=== PATIENT | female | born 1980 | race American Indian/Alaskan Native ===

== ENCOUNTER 2017-10-09 12:19 | Emergency (ER) | payer OTHER ==
[2017-10-09 12:42] VITALS: BP 116/69
[2017-10-09 13:28] LABS: HCG Qualitative,Urine Negative (Negative)
[2017-10-09 13:31] LABS: Bacteria,Urine 2+ /HPF (Negative); Bilirubin,Urine NEG (Negative); Blood,Urine NEG (Negative); Color,Urine Straw (Yellow); Mucus,Urine FEW /HPF; Protein,Urine <15 mg/dL mg/dL (Negative); Urobilinogen,Urine < 2.0 mg/dL (<2.0)
== END 2017-10-09 19:41 | disposition left against medical advice (07) ==
LOC: ED 12:19
DX: Z53.21 Procedure and treatment not carried out due to patient leaving prior to being seen by health care provider (principal)
CPT/HCPCS: 81001; 81025

== ENCOUNTER 2017-12-22 04:14 | Emergency (ER) | payer OTHER | END 2017-12-22 06:17 | disposition left against medical advice (07) | LOC: ED 04:14 | DX: G47.9 Sleep disorder, unspecified (principal); Z53.21 Procedure and treatment not carried out due to patient leaving prior to being seen by health care provider ==

== ENCOUNTER 2018-12-15 19:42 | Inpatient (IN) | payer OTHER ==
--- NOTE | 2018-12-15 20:07 | Event Note ---
ED Screening Note Date of service: 12/15/18 Time: 20:05 ED Screening Note: 38 y o female presents to ED cc of chest pain x 1 week worsening today This initial assessment/diagnostic orders/clinical plan/treatment(s) is/are subject to change based on patients health status, clinical progression and re- assessment by fellow clinical providers in the ED. Further treatment and workup at subsequent clinical providers discretion. Patient/guardian urged not to elope from the ED as their condition may be serious if not clinically assessed and managed. Initial orders include: chest pain protocol
[2018-12-15 20:43] LABS: BUN/Creatinine Ratio 8; Blood Urea Nitrogen 4 mg/dL (7-17); Hemolysis Index 0
[2018-12-15] MEDS ORDERED: ASPIRIN PO ONE (20:44)
--- NOTE | 2018-12-15 20:44 | Emergency Department Report ---
HPI - General Chief Complaint: Chest Pain Time Seen by Provider: 12/15/18 20:05 - HPI HPI: Room 24 The patient is a 38-year-old female presenting with a chief complaint of chest pain. The patient states for 1.5 months she's had intermittent substernal chest pain described as sharp in nature and associated with shortness of breath. Patient denies nausea/vomiting or diaphoresis. Patient states at times she gets lightheaded and her legs feel weak during the episode. Patient denies palpitations. Patient denies any recent flights or long car trips. Patient states she's never had a stress test or cardiac catheterization Location: [See above] Duration: [See above] Quality: [See above] Severity: [See above] Modifying factors: [see above] Context: [see above] Mode of transportation: [not driving] ED Past Medical Hx - Past Medical History Previous Medical History?: No Additional medical history: Beta-Thalassemia. Depression - Surgical History Past Surgical History?: No - Family History Family history: no significant - Social History Smoking Status: Current Some Day Smoker (cigars and hookah) Substance Use Type: None (denies illicit drug use), Alcohol (occasional) ED Review of Systems ROS: Stated complaint: CHEST PAIN Other details as noted in HPI Constitutional: denies: diaphoresis Eyes: denies: eye pain ENT: denies: throat pain Respiratory: shortness of breath Cardiovascular: chest pain. denies: palpitations Endocrine: no symptoms reported Gastrointestinal: denies: nausea, vomiting Genitourinary: denies: dysuria Musculoskeletal: denies: back pain Neurological: denies: headache Physical Exam - Physical Exam Vital Signs: Vital Signs 12/15/18 12/15/18 12/15/18 16:26 16:30 19:52 Temperature 98.5 F Pulse Rate 71 Respiratory 18 Rate Blood Pressure 103/51 O2 Sat by Pulse 94 94 100 Oximetry 12/15/18 12/15/18 12/15/18 20:04 20:25 20:30 Temperature 98.5 F Pulse Rate 71 72 Respiratory 18 18 Rate Blood Pressure 103/51 O2 Sat by Pulse 100 76 L Oximetry 12/15/18 20:31 Temperature Pulse Rate Respiratory Rate Blood Pressure O2 Sat by Pulse 99 Oximetry Physical Exam: GENERAL: The patient is well-developed well-nourished female lying on stretcher not appearing to be in acute distress. [] HEENT: Normocephalic. Atraumatic. Extraocular motions are intact. Patient has moist mucous membranes. NECK: Supple. Trachea midline CHEST/LUNGS: Clear to auscultation. There is no respiratory distress noted. HEART/CARDIOVASCULAR: Regular. There is no tachycardia. There is no gallop rub or murmur. ABDOMEN: Abdomen is soft, nontender. Patient has normal bowel sounds. There is no abdominal distention. SKIN: There is no rash. There is no edema. There is no diaphoresis. NEURO: The patient is awake, alert, and oriented. The patient is cooperative. The patient has normal speech MUSCULOSKELETAL: There is no evidence of acute injury. ED Course Vital Signs 12/15/18 12/15/18 12/15/18 16:26 16:30 19:52 Temperature 98.5 F Pulse Rate 71 Respiratory 18 Rate Blood Pressure 103/51 O2 Sat by Pulse 94 94 100 Oximetry 12/15/18 12/15/18 12/15/18 20:04 20:25 20:30 Temperature 98.5 F Pulse Rate 71 72 Respiratory 18 18 Rate Blood Pressure 103/51 O2 Sat by Pulse 100 76 L Oximetry 12/15/18 20:31 Temperature Pulse Rate Respiratory Rate Blood Pressure O2 Sat by Pulse 99 Oximetry ED Medical Decision Making - Lab Data Result diagrams: 12/15/18 20:14 12/15/18 20:14 Laboratory Tests 12/15/18 12/15/18 12/15/18 20:14 20:14 20:45 WBC 9.0 RBC 5.12 H Hgb 6.4 L Hct 24.6 L MCV < 50 L MCH 13 L MCHC 26 L RDW 28.4 H Plt Count 646 H Add Manual Diff Complete Total Counted 100 Seg Neuts % (Manual) 63.0 Band Neutrophils % 0 Lymphocytes % (Manual) 31.0 Reactive Lymphs % (Man) 0 Monocytes % (Manual) 6.0 Eosinophils % (Manual) 0 Basophils % (Manual) 0 Metamyelocytes % 0 Myelocytes % 0 Promyelocytes % 0 Blast Cells % 0 Nucleated RBC % Not Reportable Seg Neutrophils # Man 5.7 Band Neutrophils # 0.0 Lymphocytes # (Manual) 2.8 Abs React Lymphs (Man) 0.0 Monocytes # (Manual) 0.5 Eosinophils # (Manual) 0.0 Basophils # (Manual) 0.0 Metamyelocytes # 0.0 Myelocytes # 0.0 Promyelocytes # 0.0 Blast Cells # 0.0 WBC Morphology Not Reportable Hypersegmented Neuts Not Reportable Hyposegmented Neuts Not Reportable Hypogranular Neuts Not Reportable Smudge Cells Not Reportable Toxic Granulation Not Reportable Toxic Vacuolation Not Reportable Dohle Bodies Not Reportable Pelger-Huet Anomaly Not Reportable Jesus Rods Not Reportable Platelet Estimate Appears increased Clumped Platelets Not Reportable Plt Clumps, EDTA Not Reportable Large Platelets 1+ Giant Platelets Not Reportable Platelet Satelliting Not Reportable Plt Morphology Comment Not Reportable RBC Morphology Not Reportable Dimorphic RBCs Yes Polychromasia Not Reportable Hypochromasia 3+ Poikilocytosis Not Reportable Anisocytosis Not Reportable Microcytosis 3+ Macrocytosis Not Reportable Spherocytes Not Reportable Pappenheimer Bodies Not Reportable Sickle Cells Not Reportable Target Cells Few Tear Drop Cells 1+ Ovalocytes 1+ Helmet Cells Not Reportable [place] Bodies Not Reportable [place] Rings Not Reportable Sarah Cells 1+ Bite Cells Not Reportable Crenated Cell Not Reportable Elliptocytes Not Reportable Acanthocytes (Spur) 1+ Rouleaux Not Reportable Hemoglobin C Crystals Not Reportable Schistocytes Few Malaria parasites Not Reportable Murphy Bodies Not Reportable Hem Pathologist Commnt No D-Dimer 226.84 Sodium 137 Potassium 3.2 L Chloride 100.2 Carbon Dioxide 24 Anion Gap 16 BUN 4 L Creatinine 0.5 L Estimated GFR > 60 BUN/Creatinine Ratio 8 Glucose 91 Calcium 9.0 Troponin T < 0.010 - EKG Data -: EKG Interpreted by Me EKG shows normal: sinus rhythm Rate: normal - EKG Data When compared to previous EKG there are: previous EKG unavailable Interpretation: nonspecific ST-T wave adria (T-wave inversion in lead 3) - Radiology Data Radiology results: report reviewed (CXR), image reviewed (chest x-ray) interpreted by me: Chest x-ray-no focal infiltrates, no pneumothorax [facility] [address] [place] [address] XRay Report Signed Patient: GEMA CLARK MR#: [id number] : 1980 Acct:[id number] Age/Sex: 38 / F ADM Date: 12/15/18 Loc: ED Attending Dr: Ordering Physician: TORIE BARRON Date of Service: 12/15/18 Procedure(s): XR chest routine 2V Accession Number(s): [id number] cc: TORIE BARRON Fluoro Time In Minutes: CHEST 2 VIEWS INDICATION: Chest Pain. Generalized chest pain for the past 2 months COMPARISON: None FINDINGS: Support devices: None. Heart: Within normal limits. Lungs/pleura: No acute air space or interstitial disease. No pneumothorax. Additional findings: None. IMPRESSION: 1. No acute findings. Signer Name: Abel Sylvester MD Signed: 12/15/2018 8:51 PM Workstation Name: [id number] Transcribed By: YANIQUE Dictated By: Abel Sylvester MD Electronically Authenticated By: Abel Sylvester MD Signed Date/Time: 12/15/182050 DD/ 50 TD/TT: - Differential Diagnosis ACS, pericarditis, GERD, PE Critical care attestation.: If time is entered above; I have spent that time in minutes in the direct care of this critically ill patient, excluding procedure time. ED Disposition Clinical Impression: Chest pain Disposition: - OP ADMIT IP TO THIS HOSP Is pt being admited?: Yes Does the pt Need Aspirin: Yes Condition: Fair Instructions: Chest Pain (ED) Referrals: PRIMARY CARE, [Primary Care Provider] - 3-5 Days Time of Disposition: 22:48 (hospitalist paged (Dr Edouard))
--- NOTE | 2018-12-15 20:55 | XRay Report ---
CHEST 2 VIEWS INDICATION: Chest Pain. Generalized chest pain for the past 2 months COMPARISON: None FINDINGS: Support devices: None. Heart: Within normal limits. Lungs/pleura: No acute air space or interstitial disease. No pneumothorax. Additional findings: None. IMPRESSION: 1. No acute findings. Signer Name: Abel Sylvester MD Signed: 12/15/2018 8:51 PM Workstation Name: [id number]
[2018-12-15 21:07] LABS: Platelet Count 646 K/mm3 (140-440); Red Blood Count 5.12 M/mm3 (3.65-5.03)
[2018-12-15] MEDS ORDERED: K-DUR PO ONE (21:17)
[2018-12-15 21:54] LABS: Hematocrit 24.6 % (30.3-42.9); Hemoglobin 6.4 gm/dl (10.1-14.3); Mean Corpuscular HGB Conc 26 % (30-34); Mean Corpuscular Volume < 50 fl (79-97)
[2018-12-15 21:55] LABS: Red Cell Distribution Width 28.4 % (13.2-15.2)
[2018-12-15 22:36] LABS: Basophils % (Manual) 0 % (0.0-1.8); Eosinophils % (Manual) 0 % (0.0-4.3); Total Cells Counted 100
[2018-12-15 22:37] LABS: Burr Cells 1+; Hypochromasia 3+; Target Cells Few; Tear Drop Cells 1+
[2018-12-15 22:38] LABS: Dimorphic RBC Yes; Large Platelets 1+; Ovalocytes 1+; Schistocytes Few
[2018-12-15 22:39] LABS: Platelet Estimate Appears Increased
[2018-12-15] MEDS ORDERED: NITROSTAT SL PRN (23:40)
[2018-12-15] MEDS ORDERED: MORPHINE IV PRN (23:40)
[2018-12-15] MEDS ORDERED: TYLENOL PO PRN (23:41)
[2018-12-15] MEDS ORDERED: ZOFRAN IV PRN (23:41)
[2018-12-15] MEDS ORDERED: NACL 0.9% 500 ML 500 ML IV ONE (23:42)
[2018-12-16 01:19] LABS: Creatine Kinase MB < 1.0 ng/mL (0.0-4.0)
--- NOTE | 2018-12-16 04:39 | History and Physical Report ---
CHIEF COMPLAINT: Chest pain. HISTORY OF PRESENTING ILLNESS: The patient is a 38-year-old female who says she has been having intermittent chest pain going on for about 1 month. The patient described pain as sharp and located in the retrosternal area. There is history of associated shortness of breath and dizziness. The patient denied history of palpitations. Denies history of nausea and vomiting and denied history of diaphoresis. PAST MEDICAL HISTORY: Pertinent for beta thalassemia and depression. FAMILY HISTORY: Pertinent for thalassemia in the mother and no history of coronary artery disease in the parents or siblings. SOCIAL HISTORY: The patient smokes cigarettes, drinks alcohol, but does not use illicit drug. MEDICATIONS: The patient's home medications are not known at this time. ALLERGIES: There are no known drug allergies. REVIEW OF SYSTEMS: CONSTITUTIONAL: There is no fever, no chills, no diaphoresis. HEENT: There is no headache or sore throat. CARDIOVASCULAR SYSTEM: Chest pain is present. No orthopnea. RESPIRATORY SYSTEM: Shortness of breath is present. No cough. GASTROINTESTINAL SYSTEM: There is no nausea, no vomiting, no abdominal pain, diarrhea or constipation. NEUROLOGICAL SYSTEM: There is no numbness, but there is dizziness and no altered mental status. MUSCULOSKELETAL: There is no joint pain or swelling. DERMATOLOGICAL SYSTEM: There is no skin rash or itching. GENITOURINARY SYSTEM: There is no dysuria, hematuria, or flank pain. Rest of system review is normal. PHYSICAL EXAMINATION: GENERAL: At the time of exam, the patient was found to be alert, oriented x 3 and not in acute distress. VITAL SIGNS: Shows temperature of 98.5 degrees Fahrenheit, pulse of 71, respirations 18, blood pressure 103/51, O2 sat of 100% on room air. HEENT: Showed pupils to be equal, round, reactive to light and accommodation. Extraocular muscles are intact. NECK: Supple with no JVD or carotid bruit. CARDIOVASCULAR SYSTEM: Showed normal first and second heart sounds, with no gallops or murmurs. RESPIRATORY SYSTEM: Showed good air entry on both sides of the lungs, with no abnormal breath sounds. GASTROINTESTINAL SYSTEM: Showed abdomen to be full, soft, nontender, with no organomegaly or rigidity. NEUROLOGICAL: Shows no focal deficit. MUSCULOSKELETAL SYSTEM: Showed no joint swelling or tenderness. DERMATOLOGICAL SYSTEM: Showed no skin rash. GENITOURINARY SYSTEM: Showing no costovertebral angle tenderness. PERTINENT LABORATORY DATA AND IMAGING STUDIES: The patient had chest x-ray done that shows no acute findings. The patient's lab result shows CBC with normal white count, low hemoglobin of 6.4 and low hematocrit of 24.6 with low MCV of less than 50 and elevated platelet count of 646. The patient's chemistry shows a low potassium level of 3.2 with the rest of chemistry being unremarkable. The patient's troponin level was normal. IMAGING STUDIES: The patient had chest x-ray done that shows no acute cardiopulmonary lesion. DIAGNOSES: 1. Chest pain. 2. Anemia. 3. Hypokalemia. PLAN OF CARE: 1. The patient will be admitted to telemetry. 2. The patient will remain n.p.o. for Lexiscan stress test in the morning. 3. The patient will have serial cardiac enzymes involving troponin, total CK, and CK-MB checked every 6 hours x 2 more levels. 4. The patient will have transfusion of 2 units of packed red blood cells because of anemia; however, the patient will have a Hematology consult with Dr. Austen Odonnell because of history of beta thalassemia and anemia. 5. The patient will be on Tylenol 650 mg by mouth every 4 hours for fever and headache. 6. The patient will be on aspirin 325 mg by mouth daily and will be on nitro paste 0.5 inch to anterior chest wall q.i.d. as well as Nitrostat 0.4 mg sublingual every 5 minutes as needed for chest pain. 7. The patient will be on IV morphine 2 mg every 3 hours as needed for pain and IV Zofran 4 mg every 8 hours as needed for nausea and vomiting. 8. The patient will have basic metabolic panel done in the morning of 12/16/2018 to monitor potassium level having received 40 mEq of potassium by mouth in the Emergency Room. 9. The patient will be on oxygen by nasal cannula at 2 liters per minute. 10. The patient will have hemoccult stool test done and will be on sequential compressive device for DVT prophylaxis. JOB# [id number] OCN/NTS
[2018-12-16] MEDS: NITRO-BID 2% TP SCH ×3 (05:01→18:33)
[2018-12-16] MEDS ORDERED: NACL 0.9% 500 ML 500 ML IV ONE (05:02)
[2018-12-16 06:24] LABS: BUN/Creatinine Ratio 10; Blood Urea Nitrogen 5 mg/dL (7-17); Calcium 8.9 mg/dL (8.4-10.2); Hemolysis Index 0
[2018-12-16 06:27] LABS: Creatine Kinase MB < 1.0 ng/mL (0.0-4.0)
[2018-12-16] MEDS ORDERED: LEXISCAN IV ONE (07:55)
[2018-12-16 08:24] LABS: Platelet Count 610 K/mm3 (140-440); Red Blood Count 4.94 M/mm3 (3.65-5.03)
[2018-12-16 08:35] LABS: Hematocrit 23.5 % (30.3-42.9); Hemoglobin 6.1 gm/dl (10.1-14.3)
[2018-12-16 08:35] LABS: Iron 9 ug/dL (37-170); Total Iron Binding Capacity 343 mcg/dL (250-450)
[2018-12-16 08:36] LABS: Mean Corpuscular HGB Conc 26 % (30-34); Mean Corpuscular Volume < 50 fl (79-97); Red Cell Distribution Width 28.3 % (13.2-15.2)
[2018-12-16 11:50] LABS: Anisocytosis 3+; Basophils % (Manual) 0 % (0.0-1.8); Hypochromasia 3+; Total Cells Counted 100
[2018-12-16 11:51] LABS: Platelet Estimate Consistent w Auto
[2018-12-16] MEDS: ASPIRIN PO SCH (12:43)
--- NOTE | 2018-12-16 17:43 | Event Note ---
Date: 12/16/18 [id number]
[2018-12-16] MEDS ORDERED: FERRLECIT 125 MG in NACL 0.9% 100 ML IV ONE (18:00)
--- NOTE | 2018-12-16 18:59 | Progress Note ---
Hospitalist Physical - Constitutional Vitals: Temp Pulse Resp BP Pulse Ox 98.3 F 71 18 99/48 100 12/16/18 16:46 12/16/18 16:46 12/16/18 16:46 12/16/18 16:46 12/16/18 16:46 Results - Labs CBC & Chem 7: 12/16/18 06:41 12/16/18 05:07 Labs: Laboratory Last Values WBC 8.1 K/mm3 (4.5-11.0) 12/16/18 06:41 RBC 4.94 M/mm3 (3.65-5.03) 12/16/18 06:41 Hgb 6.1 gm/dl (10.1-14.3) L 12/16/18 06:41 Hct 23.5 % (30.3-42.9) L 12/16/18 06:41 MCV < 50 fl (79-97) L 12/16/18 06:41 MCH 12 pg (28-32) L 12/16/18 06:41 MCHC 26 % (30-34) L 12/16/18 06:41 RDW 28.3 % (13.2-15.2) H 12/16/18 06:41 Plt Count 610 K/mm3 (140-440) H 12/16/18 06:41 [place] % (Auto) Filling Room Operator 12/16/18 06:41 Add Manual Diff Complete 12/16/18 06:41 Total Counted 100 12/16/18 06:41 Seg Neuts % (Manual) 76.0 % (40.0-70.0) H 12/16/18 06:41 0 % 12/16/18 06:41 15.0 % (13.4-35.0) 12/16/18 06:41 Reactive Lymphs % (Man) 0 % 12/16/18 06:41 5.0 % (0.0-7.3) 12/16/18 06:41 4.0 % (0.0-4.3) 12/16/18 06:41 0 % (0.0-1.8) 12/16/18 06:41 0 % 12/16/18 06:41 0 % 12/16/18 06:41 0 % 12/16/18 06:41 0 % 12/16/18 06:41 Nucleated RBC % Not Reportable 12/16/18 06:41 Seg Neutrophils # Man 6.2 K/mm3 (1.8-7.7) 12/16/18 06:41 Band Neutrophils # 0.0 K/mm3 12/16/18 06:41 1.2 K/mm3 (1.2-5.4) 12/16/18 06:41 Abs React Lymphs (Man) 0.0 K/mm3 12/16/18 06:41 0.4 K/mm3 (0.0-0.8) 12/16/18 06:41 0.3 K/mm3 (0.0-0.4) 12/16/18 06:41 0.0 K/mm3 (0.0-0.1) 12/16/18 06:41 0.0 K/mm3 12/16/18 06:41 0.0 K/mm3 12/16/18 06:41 0.0 K/mm3 12/16/18 06:41 Blast Cells # 0.0 K/mm3 12/16/18 06:41 WBC Morphology Not Reportable 12/16/18 06:41 Hypersegmented Neuts Not Reportable 12/16/18 06:41 Hyposegmented Neuts Not Reportable 12/16/18 06:41 Hypogranular Neuts Not Reportable 12/16/18 06:41 Not Reportable 12/16/18 06:41 Not Reportable 12/16/18 06:41 Not Reportable 12/16/18 06:41 Not Reportable 12/16/18 06:41 Not Reportable 12/16/18 06:41 Not Reportable 12/16/18 06:41 Consistent w auto 12/16/18 06:41 Not Reportable 12/16/18 06:41 Plt Clumps, EDTA Not Reportable 12/16/18 06:41 Not Reportable 12/16/18 06:41 Not Reportable 12/16/18 06:41 Not Reportable 12/16/18 06:41 Plt Morphology Comment Not Reportable 12/16/18 06:41 RBC Morphology Not Reportable 12/16/18 06:41 Dimorphic RBCs Not Reportable 12/16/18 06:41 Few 12/16/18 06:41 3+ 12/16/18 06:41 Not Reportable 12/16/18 06:41 3+ 12/16/18 06:41 3+ 12/16/18 06:41 Not Reportable 12/16/18 06:41 Not Reportable 12/16/18 06:41 Not Reportable 12/16/18 06:41 Not Reportable 12/16/18 06:41 Not Reportable 12/16/18 06:41 Not Reportable 12/16/18 06:41 Not Reportable 12/16/18 06:41 Not Reportable 12/16/18 06:41 Not Reportable 12/16/18 06:41 Not Reportable 12/16/18 06:41 Not Reportable 12/16/18 06:41 Not Reportable 12/16/18 06:41 Not Reportable 12/16/18 06:41 Not Reportable 12/16/18 06:41 Acanthocytes (Spur) Not Reportable 12/16/18 06:41 Rouleaux Not Reportable 12/16/18 06:41 Not Reportable 12/16/18 06:41 Not Reportable 12/16/18 06:41 Not Reportable 12/16/18 06:41 Not Reportable 12/16/18 06:41 Hem Pathologist Commnt No 12/16/18 06:41 226.84 ng/mlDDU (0-234) 12/15/18 20:45 Sodium 137 mmol/L (137-145) 12/16/18 05:07 Potassium 3.4 mmol/L (3.6-5.0) L 12/16/18 05:07 Chloride 101.5 mmol/L (98-107) 12/16/18 05:07 Carbon Dioxide 24 mmol/L (22-30) 12/16/18 05:07 15 mmol/L 12/16/18 05:07 BUN 5 mg/dL (7-17) L 12/16/18 05:07 0.5 mg/dL (0.7-1.2) L 12/16/18 05:07 Estimated GFR > 60 ml/min 12/16/18 05:07 10 % 12/16/18 05:07 Glucose 94 mg/dL (65-100) 12/16/18 05:07 Calcium 8.9 mg/dL (8.4-10.2) 12/16/18 05:07 Iron 9 ug/dL (37-170) L 12/16/18 07:38 TIBC 343 mcg/dL (250-450) 12/16/18 07:38 7.0 ng/mL (13.0-400.0) L 12/16/18 07:38 37 units/L (30-135) 12/16/18 05:07 CK-MB (CK-2) < 1.0 ng/mL (0.0-4.0) 12/16/18 05:07 CK-MB (CK-2) Rel Index 2.7 (0-4) 12/16/18 05:07 < 0.010 ng/mL (0.00-0.029) 12/16/18 05:07 Vitamin B12 696.8 pg/mL (211-911) 12/16/18 07:38 7.57 ng/mL (7.3-26.0) 12/16/18 07:38 HCG, Qual Negative (Negative) 12/16/18 06:41 Blood Type A POSITIVE 12/15/18 23:59 Antibody Screen Negative 12/15/18 23:59 Crossmatch See Detail 12/15/18 23:59 Active Medications - Current Medications Current Medications: Generic Name Dose Route Start Last Admin Trade Name Freq PRN Reason Stop Dose Admin Acetaminophen 650 mg 12/15/18 23:41 Tylenol PO Q4H PRN Headache Aspirin 325 mg 12/16/18 10:00 12/16/18 12:43 Aspirin PO 325 mg QDAY HAIR Administration Ferric Sodium Gluconate 110 mls @ 100 mls/hr 12/16/18 18:00 Complex 125 mg/ Sodium IV 12/16/18 19:05 Chloride ONCE ONE Morphine Sulfate 2 mg 12/15/18 23:40 Morphine IV Q3H PRN Pain, Moderate (4-6) Nitroglycerin 0.5 inch 12/16/18 06:00 12/16/18 18:33 Nitro-Bid 2% TP Not Given QIDNTG [facility] Protocol Nitroglycerin 0.4 mg 12/15/18 23:40 Nitrostat SL .Q5MIN PRN Chest Pain Ondansetron HCl 4 mg 12/15/18 23:41 Zofran IV Q8H PRN Nausea And Vomiting
[2018-12-16] MEDS ORDERED: BENADRYL PO PRN (21:54)
[2018-12-16] MEDS: NACL 0.9% 1000 ML 1,000 ML IV SCH ×2 (22:24→22:52)
--- NOTE | 2018-12-16 23:37 | Consultation ---
REFERRED BY: Dr. Zhu. REASON FOR CONSULTATION: Microcytic anemia, history of thalassemia. HISTORY OF PRESENT ILLNESS: I saw the patient 38-year-old female in the medical floor. The patient came to the hospital because of retrosternal chest pain for about a month. She has a history of shortness of breath and dizziness. The patient has history of heavy cycles. She has fibroid uterus. The patient states that she has history of beta thalassemia as per information and depression. FAMILY HISTORY: Mother had thalassemia. SOCIAL HISTORY: History of smoking cigarette present. History of alcohol use is present. The patient's family members, some live in [place], some in [place]. ALLERGIES: None. During this admission, blood test showed anemia. MCV was low. I have been asked to evaluate the patient. At this time, no headache, no visual disturbances, no ear discharge. Had history of chest pain, no vomiting, no diarrhea, no dysuria. Has history of heavy cycles and abdominal distention. PRESENT MEDICATIONS: Include aspirin, nitroglycerin and Zofran. PHYSICAL EXAMINATION: VITAL SIGNS: Temperature 98, pulse 71, respirations 18, BP 99/48. HEENT: Pallor present. No icterus. NECK: No neck lymph nodes. HEART: S1, S2. LUNGS: Clear to auscultation. ABDOMEN: Soft. A large mass present in the pelvic area extending all the way to above umbilical area. EXTREMITIES: No pedal edema, no calf tenderness. NEUROLOGIC: Alert, awake and oriented. LABORATORY DATA: White cell 8, hemoglobin 6.1, MCV less than 50, platelets 610. Under the microscope, hypochromia, microcytosis, anisocytosis. Potassium 3.4, creatinine 0.5, calcium 8.9, ferritin 7, serum iron 9, B12 of 696, folate 7, HCG negative. RADIOLOGY: Chest x-ray was done. ASSESSMENT AND PLAN: 1. Microcytic anemia. The patient has history of thalassemia that may contribute. There is mention of beta thalassemia, but based on her symptoms and pelvic/abdominal mass. This is likely secondary to iron deficiency anemia. We will look into intravenous iron and once there is improvement in hemoglobin, we will look into stopping the same. 2. History of chest pain, this was related to anemia. 3. I will follow the patient during inpatient stay and then in the clinic setting. JOB# [id number] MONICA/JI
[2018-12-17 04:18] VITALS: BP 102/55
--- NOTE | 2018-12-17 04:19 | Event Note ---
Date: 12/16/18 Pt offered rectal exam to collect sample for heme occult. Pt declined rectal exam. She was then offered a laxative, and declined that as well. Heme Occult sample pending bm.
[2018-12-17] MEDS: NITRO-BID 2% TP SCH ×2 (05:17→09:36)
[2018-12-17 06:17] LABS: Albumin 3.7 g/dL (3.9-5); BUN/Creatinine Ratio 10; Blood Urea Nitrogen 5 mg/dL (7-17); Calcium 9.1 mg/dL (8.4-10.2); Hemolysis Index 2
[2018-12-17 06:18] LABS: Alanine Aminotransferase < 5 units/L (7-56)
[2018-12-17 06:53] LABS: Mean Corpuscular HGB Conc 27 % (30-34); Platelet Count 648 K/mm3 (140-440); Red Blood Count 5.13 M/mm3 (3.65-5.03)
[2018-12-17 06:57] LABS: Hematocrit 26.1 % (30.3-42.9); Mean Corpuscular Volume 51 fl (79-97)
--- NOTE | 2018-12-17 07:58 | Hem/Onc Progress Note ---
Assessment and Plan 1. Microcytic anemia. The patient has history of thalassemia that may contribute. There is mention of beta thalassemia, but based on her symptoms and pelvic/abdominal mass. This is likely secondary to iron deficiency anemia. We will look into intravenous iron and once there is improvement in hemoglobin, we will look into stopping the same. 2. History of chest pain, this was related to anemia. 3. I will follow the patient during inpatient stay and then in the clinic setting. US - pelvic/uterine abn - riveter pneumatic follow up d/w dr celi mares OP follow up - Patient Problems (1) Iron deficiency anemia Status: Acute Subjective Date of service: 12/17/18 Principal diagnosis: anemia - WANDA Interval history: s/p PRBC Objective - Constitutional Vitals: Last Vital Signs Temp 99.0 F 12/17/18 03:37 Pulse 71 12/17/18 05:17 Resp 20 12/17/18 03:37 BP 102/55 12/17/18 05:17 Pulse Ox 99 12/17/18 03:37 - Labs Lab Results: Laboratory Results - last 24 hr 12/15/18 12/16/18 12/16/18 23:59 06:41 06:41 WBC 8.1 RBC 4.94 Hgb 6.1 L Hct 23.5 L MCV < 50 L MCH 12 L MCHC 26 L RDW 28.3 H Plt Count 610 H Sherman % (Auto) Gut Dropper Add Manual Diff Complete Total Counted 100 Seg Neuts % (Manual) 76.0 H Band Neutrophils % 0 Lymphocytes % (Manual) 15.0 Reactive Lymphs % (Man) 0 Monocytes % (Manual) 5.0 Eosinophils % (Manual) 4.0 Basophils % (Manual) 0 Metamyelocytes % 0 Myelocytes % 0 Promyelocytes % 0 Blast Cells % 0 Nucleated RBC % Not Reportable Seg Neutrophils # Man 6.2 Band Neutrophils # 0.0 Lymphocytes # (Manual) 1.2 Abs React Lymphs (Man) 0.0 Monocytes # (Manual) 0.4 Eosinophils # (Manual) 0.3 Basophils # (Manual) 0.0 Metamyelocytes # 0.0 Myelocytes # 0.0 Promyelocytes # 0.0 Blast Cells # 0.0 WBC Morphology Not Reportable Hypersegmented Neuts Not Reportable Hyposegmented Neuts Not Reportable Hypogranular Neuts Not Reportable Smudge Cells Not Reportable Toxic Granulation Not Reportable Toxic Vacuolation Not Reportable Dohle Bodies Not Reportable Pelger-Huet Anomaly Not Reportable Jesus Rods Not Reportable Platelet Estimate Consistent w auto Clumped Platelets Not Reportable Plt Clumps, EDTA Not Reportable Large Platelets Not Reportable Giant Platelets Not Reportable Platelet Satelliting Not Reportable Plt Morphology Comment Not Reportable RBC Morphology Not Reportable Dimorphic RBCs Not Reportable Polychromasia Few Hypochromasia 3+ Poikilocytosis Not Reportable Anisocytosis 3+ Microcytosis 3+ Macrocytosis Not Reportable Spherocytes Not Reportable Pappenheimer Bodies Not Reportable Sickle Cells Not Reportable Target Cells Not Reportable Tear Drop Cells Not Reportable Ovalocytes Not Reportable Helmet Cells Not Reportable Sanchez-Lowman Bodies Not Reportable [place] Rings Not Reportable Eek Cells Not Reportable Bite Cells Not Reportable Crenated Cell Not Reportable Elliptocytes Not Reportable Acanthocytes (Spur) Not Reportable Rouleaux Not Reportable Hemoglobin C Crystals Not Reportable Schistocytes Not Reportable Malaria parasites Not Reportable Murphy Bodies Not Reportable Hem Pathologist Commnt No Sodium Potassium Chloride Carbon Dioxide Anion Gap BUN Creatinine Estimated GFR BUN/Creatinine Ratio Glucose Calcium Iron TIBC Ferritin Total Bilirubin AST ALT Alkaline Phosphatase Total Protein Albumin Albumin/Globulin Ratio Vitamin B12 Folate HCG, Qual Negative Blood Type A POSITIVE Antibody Screen Negative Crossmatch See Detail 12/16/18 12/16/18 12/16/18 07:38 07:38 07:38 WBC RBC Hgb Hct MCV MCH MCHC RDW Plt Count Sherman % (Auto) Add Manual Diff Total Counted Seg Neuts % (Manual) Band Neutrophils % Lymphocytes % (Manual) Reactive Lymphs % (Man) Monocytes % (Manual) Eosinophils % (Manual) Basophils % (Manual) Metamyelocytes % Myelocytes % Promyelocytes % Blast Cells % Nucleated RBC % Seg Neutrophils # Man Band Neutrophils # Lymphocytes # (Manual) Abs React Lymphs (Man) Monocytes # (Manual) Eosinophils # (Manual) Basophils # (Manual) Metamyelocytes # Myelocytes # Promyelocytes # Blast Cells # WBC Morphology Hypersegmented Neuts Hyposegmented Neuts Hypogranular Neuts Smudge Cells Toxic Granulation Toxic Vacuolation Dohle Bodies Pelger-Huet Anomaly Jesus Rods Platelet Estimate Clumped Platelets Plt Clumps, EDTA Large Platelets Giant Platelets Platelet Satelliting Plt Morphology Comment RBC Morphology Dimorphic RBCs Polychromasia Hypochromasia Poikilocytosis Anisocytosis Microcytosis Macrocytosis Spherocytes Pappenheimer Bodies Sickle Cells Target Cells Tear Drop Cells Ovalocytes Helmet Cells Sanchez-Lowman Bodies [place] Rings Sarah Cells Bite Cells Crenated Cell Elliptocytes Acanthocytes (Spur) Rouleaux Hemoglobin C Crystals Schistocytes Malaria parasites Murphy Bodies Hem Pathologist Commnt Sodium Potassium Chloride Carbon Dioxide Anion Gap BUN Creatinine Estimated GFR BUN/Creatinine Ratio Glucose Calcium Iron 9 L TIBC 343 Ferritin 7.0 L Total Bilirubin AST ALT Alkaline Phosphatase Total Protein Albumin Albumin/Globulin Ratio Vitamin B12 696.8 Folate HCG, Qual Blood Type Antibody Screen Crossmatch 12/16/18 12/17/18 12/17/18 07:38 04:09 04:09 WBC 9.9 RBC 5.13 H Hgb 7.0 L Hct 26.1 L MCV 51 L MCH 14 L MCHC 27 L RDW 28.0 H Plt Count 648 H Sherman % (Auto) Gut Dropper Add Manual Diff Total Counted Seg Neuts % (Manual) Band Neutrophils % Lymphocytes % (Manual) Reactive Lymphs % (Man) Monocytes % (Manual) Eosinophils % (Manual) Basophils % (Manual) Metamyelocytes % Myelocytes % Promyelocytes % Blast Cells % Nucleated RBC % Seg Neutrophils # Man Band Neutrophils # Lymphocytes # (Manual) Abs React Lymphs (Man) Monocytes # (Manual) Eosinophils # (Manual) Basophils # (Manual) Metamyelocytes # Myelocytes # Promyelocytes # Blast Cells # WBC Morphology Hypersegmented Neuts Hyposegmented Neuts Hypogranular Neuts Smudge Cells Toxic Granulation Toxic Vacuolation Dohle Bodies Pelger-Huet Anomaly Jesus Rods Platelet Estimate Clumped Platelets Plt Clumps, EDTA Large Platelets Giant Platelets Platelet Satelliting Plt Morphology Comment RBC Morphology Dimorphic RBCs Polychromasia Hypochromasia Poikilocytosis Anisocytosis Microcytosis Macrocytosis Spherocytes Pappenheimer Bodies Sickle Cells Target Cells Tear Drop Cells Ovalocytes Helmet Cells Sanchez-Lowman Bodies [place] Rings Sarah Cells Bite Cells Crenated Cell Elliptocytes Acanthocytes (Spur) Rouleaux Hemoglobin C Crystals Schistocytes Malaria parasites Murphy Bodies Hem Pathologist Commnt Sodium 137 Potassium 4.0 Chloride 102.7 Carbon Dioxide 22 Anion Gap 16 BUN 5 L Creatinine 0.5 L Estimated GFR > 60 BUN/Creatinine Ratio 10 Glucose 97 Calcium 9.1 Iron TIBC Ferritin Total Bilirubin < 0.20 AST 8 ALT < 5 L Alkaline Phosphatase 64 Total Protein 7.3 Albumin 3.7 L Albumin/Globulin Ratio 1.0 Vitamin B12 Folate 7.57 HCG, Qual Blood Type Antibody Screen Crossmatch Medications & Allergies - Medications Allergies/Adverse Reactions: Allergies No Known Allergies Allergy (Verified 12/15/18 19:51) Home Medications: Home Medications Medication Instructions Recorded Confirmed Last Taken Type Famotidine [Pepcid] 20 mg PO BID #30 tablet 12/17/18 Unknown Rx Ferrous Sulfate [Feosol 325 MG tab] 325 mg PO QDAY #15 tablet 12/17/18 Unknown Rx Nitroglycerin [Nitrostat] 0.4 mg SL .Q5MIN PRN #30 tablet 12/17/18 Unknown Rx Active Medications: Generic Name Dose Route Start Last Admin Trade Name Freq PRN Reason Stop Dose Admin Acetaminophen 650 mg 12/15/18 23:41 Tylenol PO Q4H PRN Headache Aspirin 325 mg 12/16/18 10:00 12/16/18 12:43 Aspirin PO 325 mg QDAY HAIR Administration Diphenhydramine HCl 25 mg 12/16/18 21:54 12/16/18 22:24 Benadryl PO 25 mg QHS PRN Administration Sleep Sodium Chloride 1,000 mls @ 75 mls/hr 12/16/18 22:00 12/16/18 22:52 Nacl 0.9% 1000 Ml IV 12/17/18 12:00 Not Given DIRECT HAIR Morphine Sulfate 2 mg 12/15/18 23:40 Morphine IV Q3H PRN Pain, Moderate (4-6) Nitroglycerin 0.5 inch 12/16/18 06:00 12/17/18 05:17 Nitro-Bid 2% TP Not Given QIDNTG [facility] Protocol Nitroglycerin 0.4 mg 12/15/18 23:40 Nitrostat SL .Q5MIN PRN Chest Pain Ondansetron HCl 4 mg 12/15/18 23:41 Zofran IV Q8H PRN Nausea And Vomiting
[2018-12-17 09:26] LABS: Anisocytosis 3+; Basophils % (Manual) 0 % (0.0-1.8); Dimorphic RBC Yes; Eosinophils % (Manual) 0 % (0.0-4.3); Hypochromasia 3+; Platelet Estimate Consistent w Auto; Total Cells Counted 100
[2018-12-17 09:27] LABS: Ovalocytes Few
[2018-12-17] MEDS: ASPIRIN PO SCH (09:36)
--- NOTE | 2018-12-17 09:41 | Ultrasound Report ---
ULTRASOUND ABDOMEN, COMPLETE INDICATION: Abdominal mass. COMPARISON: No relevant prior imaging study available. FINDINGS: Pancreas: No significant abnormality. Abdominal Aorta: No significant abnormality. IVC: No significant abnormality. Liver: The liver measures 17 cm in length. No significant abnormality. Normal hepatopedal blood flow in the main portal vein. Gallbladder: No significant abnormality. Bile ducts: No significant abnormality. Common bile duct measures 2.1 mm. Kidneys: Right: 10.6 cm in length. No significant abnormality. Left: 9.5 cm in length. No signifi cant abnormality. Spleen: No significant abnormality. 9.9 cm in length. Free fluid: None. Additional Findings: The uterus is markedly enlarged and heterogeneous with multiple fibroids. Consid ered dedicated pelvic ultrasound or CT/MRI further evaluation is needed.. IMPRESSION: Markedly enlarged uterus with multiple fibroids. Otherwise, unremarkable abdominal ultrasound.. Signer Name: Parminder Mercer Jr, MD Signed: 12/17/2018 9:37 AM Workstation Name: [id number]
--- NOTE | 2018-12-17 11:30 | Discharge Summary ---
Providers - Providers Date of Admission: 12/15/18 23:36 Date of discharge: 12/17/18 Attending physician: GENE BRUNSON 12/16/18 01:32 Consult to Physician [CONS] Routine Comment: Consulting Provider: MICHELE ODONNELL Physician Instructions: Reason For Exam: anemia, hx thalassemia Primary care physician: CUSTOMER ENGINEERING SPECIALIST Hospitalization Condition: Fair Disposition: DC-01 TO HOME OR SELFCARE Core Measure Documentation - Palliative Care Palliative Care/ Comfort Measures: Not Applicable - Core Measures Any of the following diagnoses?: none Exam - Constitutional Vitals: Temp Pulse Resp BP Pulse Ox 99.0 F 71 20 102/55 99 12/17/18 03:37 12/17/18 05:17 12/17/18 03:37 12/17/18 09:36 12/17/18 03:37 Plan Activity: advance as tolerated Diet: regular Additional Instructions: 1.Follow up with PCP in 1 week. 2.Follow up with Dr. Odonnell, Hematology in 1 week. 3.follow up with Dr. Chang, cardiology to arrange outpatient stress test for chest pain Follow up with: PRIMARY CARE, [Primary Care Provider] - 3-5 Days Prescriptions: Nitroglycerin [Nitrostat] 0.4 mg SL .Q5MIN PRN #30 tablet PRN Reason: Chest Pain Famotidine [Pepcid] 20 mg PO BID #30 tablet
== END 2018-12-17 12:46 | disposition home or self-care (01) | DRG 812 ==
LOC: ED 19:42 → 4A 23:36
PROVIDERS: ADMIT Internal Medicine; ATTEND Internal Medicine
PROC: 30233N1 Transfusion of Nonautologous Red Blood Cells into Peripheral Vein, Percutaneous Approach (ICD-10-PCS; principal; 2018-12-16)
DX: D50.9 Iron deficiency anemia, unspecified (principal); D56.1 Beta thalassemia; E87.6 Hypokalemia; R07.89 Other chest pain; N85.9 Noninflammatory disorder of uterus, unspecified; F32.9 Major depressive disorder, single episode, unspecified; F17.210 Nicotine dependence, cigarettes, uncomplicated; Z79.899 Other long term (current) drug therapy; Z72.89 Other problems related to lifestyle
CPT/HCPCS: 36415; 36430; 71046; 76700; 80048; 80053; 82550; 82553; 82607; 82728; 82747; 83550; 84484; 84703; 85007; 85025; 85379; 86850; 86900; 86901; 86920; 93005; 93010; 99406; G0378; J2785; J2916; J7030; J7040; P9016

== ENCOUNTER 2018-12-23 10:45 | Emergency (ER) | payer OTHER ==
[2018-12-23 11:09] VITALS: BP 98/43
== END 2018-12-23 11:10 | disposition left against medical advice (07) ==
LOC: ED 10:45
DX: E87.71 Transfusion associated circulatory overload (principal); Z53.21 Procedure and treatment not carried out due to patient leaving prior to being seen by health care provider

== ENCOUNTER 2020-05-10 20:13 | Observation (INO) | payer OTHER ==
[2020-05-10] MEDS ORDERED: ASPIRIN 325 MG TAB PO ONE (20:44)
[2020-05-10 21:28] LABS: BUN/Creatinine Ratio 15; Blood Urea Nitrogen 9 mg/dL (7-17); Calcium 9.3 mg/dL (8.4-10.2); Hemolysis Index 3
--- NOTE | 2020-05-10 22:14 | XRay Report ---
CHEST 2 VIEWS INDICATION / CLINICAL INFORMATION: Chest Pain. COMPARISON: 12/15/2018. FINDINGS: SUPPORT DEVICES: None. HEART / MEDIASTINUM: No significant abnormality. LUNGS / PLEURA: No significant pulmonary or pleural abnormality. No pneumothorax. ADDITIONAL FINDINGS: No significant additional findings. IMPRESSION: No acute cardiopulmonary abnormality. Signer Name: Nils Cutler MD Signed: 05/10/2020 10:10 PM Workstation Name: [id number]
[2020-05-11 00:35] LABS: Mean Corpuscular HGB Conc 25 % (30-34); Red Blood Count 4.45 M/mm3 (3.65-5.03)
[2020-05-11 00:41] LABS: Hematocrit 22.6 % (30.3-42.9); Hemoglobin 5.6 gm/dl (10.1-14.3); Mean Corpuscular Volume 51 fl (79-97); Red Cell Distribution Width 36.5 % (13.2-15.2)
[2020-05-11 00:43] LABS: Platelet Count 359 K/mm3 (140-440)
[2020-05-11 05:54] LABS: Total Cells Counted 100
[2020-05-11 05:55] LABS: Anisocytosis 3+; Burr Cells Few; Hypochromasia 3+; Ovalocytes Few; Platelet Estimate Consistent w Auto; Schistocytes 1+; Tear Drop Cells Few
--- NOTE | 2020-05-11 07:30 | Emergency Department Report ---
HPI - General Chief Complaint: Chest Pain Time Seen by Provider: 05/11/20 07:11 - [facility] HPI: Room 26 The patient is a 39-year-old female present with a chief complaint of chest pain. The patient states she has had intermittent chest pain for 1 year but has never follow-up with her primary physician about it. The patient states her last episode occurred yesterday after drinking a smoothie. Patient states she developed sharp substernal chest pain associated with shortness of breath. Patient denies nausea/vomiting or diaphoresis. Patient denies cough or fever. The patient states she has never had a stress test or cardiac catheterization ED Past Medical Hx - Past Medical History Previous Medical History?: Yes Hx Psychiatric Treatment: Yes Additional medical history: Beta-Thalassemia. Depression - Surgical History Past Surgical History?: No - Family History Family history: no significant - Social History Smoking Status: Current Every Day Smoker Substance Use Type: None (Denies illicit drug use), Alcohol (Occasional) - Medications Home Medications: Home Medications Medication Instructions Recorded Confirmed Last Taken Type Famotidine [Pepcid] 20 mg PO BID #30 tablet 12/17/18 Unknown Rx Ferrous Sulfate [Feosol 325 MG tab] 325 mg PO QDAY #15 tablet 12/17/18 Unknown Rx Nitroglycerin [Nitrostat] 0.4 mg SL .Q5MIN PRN #30 tablet 12/17/18 Unknown Rx ARIPiprazole 05/11/20 Unknown History ARIPiprazole [Abilify] 10 mg PO DAILY 05/11/20 05/11/20 Unknown History Sertraline [Zoloft] 50 mg PO QDAY 05/11/20 Unknown History ED Review of Systems ROS: Stated complaint: CHEST PAIN Other details as noted in HPI Constitutional: denies: fever Eyes: denies: eye pain ENT: denies: throat pain Respiratory: shortness of breath. denies: cough Cardiovascular: chest pain Endocrine: no symptoms reported Gastrointestinal: denies: nausea, vomiting Genitourinary: denies: dysuria Musculoskeletal: denies: back pain Neurological: denies: headache Physical Exam - Physical Exam Vital Signs: Vital Signs 05/10/20 05/11/20 05/11/20 20:49 05:56 06:00 Temperature 98.1 F Pulse Rate 84 70 70 Respiratory 18 14 14 Rate Blood Pressure 99/60 107/45 [Left] O2 Sat by Pulse 98 100 100 Oximetry Physical Exam: GENERAL: The patient is well-developed well-nourished female lying on stretcher not appearing to be in acute distress. [] HEENT: Normocephalic. Atraumatic. Extraocular motions are intact. Patient has moist mucous membranes. NECK: Supple. Trachea midline CHEST/LUNGS: Clear to auscultation. There is no respiratory distress noted. HEART/CARDIOVASCULAR: Regular. There is no tachycardia. There is no gallop rub or murmur. ABDOMEN: Abdomen is soft, nontender. Patient has normal bowel sounds. There is no abdominal distention. SKIN: There is no rash. There is no edema. There is no diaphoresis. NEURO: The patient is awake, alert, and oriented. The patient is cooperative. The patient has no focal neurologic deficits. The patient has normal speech MUSCULOSKELETAL: There is no evidence of acute injury. ED Course Vital Signs 05/10/20 05/11/20 05/11/20 20:49 05:56 06:00 Temperature 98.1 F Pulse Rate 84 70 70 Respiratory 18 14 14 Rate Blood Pressure 99/60 107/45 [Left] O2 Sat by Pulse 98 100 100 Oximetry ED Medical Decision Making - Lab Data Result diagrams: 05/10/20 22:42 05/10/20 20:48 Laboratory Tests 05/10/20 05/10/20 05/10/20 20:48 20:48 22:42 WBC 7.7 RBC 4.45 Hgb 5.6 L* Hct 22.6 L MCV 51 L MCH 13 L MCHC 25 L RDW 36.5 H Plt Count 359 Lymph % (Auto) User Interface Engineer Piatt % (Auto) User Interface Engineer Eos % (Auto) User Interface Engineer Baso % (Auto) User Interface Engineer Lymph # (Auto) User Interface Engineer Piatt # (Auto) User Interface Engineer Eos # (Auto) User Interface Engineer Baso # (Auto) User Interface Engineer Add Manual Diff Complete Total Counted 100 Seg Neutrophils % User Interface Engineer Seg Neuts % (Manual) 46.0 Lymphocytes % (Manual) 46.0 H Monocytes % (Manual) 4.0 Eosinophils % (Manual) 2.0 Basophils % (Manual) 2.0 H Nucleated RBC % Not Reportable Seg Neutrophils # User Interface Engineer Seg Neutrophils # Man 3.5 Band Neutrophils # 0.0 Lymphocytes # (Manual) 3.5 Abs React Lymphs (Man) 0.0 Monocytes # (Manual) 0.3 Eosinophils # (Manual) 0.2 Basophils # (Manual) 0.2 H Metamyelocytes # 0.0 Myelocytes # 0.0 Promyelocytes # 0.0 Blast Cells # 0.0 WBC Morphology Not Reportable Hypersegmented Neuts Not Reportable Hyposegmented Neuts Not Reportable Hypogranular Neuts Not Reportable Smudge Cells Not Reportable Toxic Granulation Not Reportable Toxic Vacuolation Not Reportable Dohle Bodies Not Reportable Pelger-Huet Anomaly Not Reportable Jesus Rods Not Reportable Platelet Estimate Consistent w auto Clumped Platelets Not Reportable Plt Clumps, EDTA Not Reportable Large Platelets Not Reportable Giant Platelets Not Reportable Platelet Satelliting Not Reportable Plt Morphology Comment Not Reportable RBC Morphology Not Reportable Dimorphic RBCs Not Reportable Polychromasia Few Hypochromasia 3+ Poikilocytosis Not Reportable Anisocytosis 3+ Microcytosis 3+ Macrocytosis Not Reportable Spherocytes Not Reportable Pappenheimer Bodies Not Reportable Sickle Cells Not Reportable Target Cells Not Reportable Tear Drop Cells Few Ovalocytes Few Helmet Cells Not Reportable Sanchez-Hallock Bodies Not Reportable [place] Rings Not Reportable Ehrhardt Cells Few Bite Cells Not Reportable Crenated Cell Not Reportable Elliptocytes Not Reportable Acanthocytes (Spur) Not Reportable Rouleaux Not Reportable Hemoglobin C Crystals Not Reportable Schistocytes 1+ Malaria parasites Not Reportable Murphy Bodies Not Reportable Hem Pathologist Commnt No Sodium 137 Potassium 3.8 Chloride 103.5 Carbon Dioxide 24 Anion Gap 13 BUN 9 Creatinine 0.6 Estimated GFR > 60 BUN/Creatinine Ratio 15 Glucose 94 Calcium 9.3 Troponin T < 0.010 HCG, Qual Negative 05/10/20 05/11/20 22:42 04:41 WBC RBC Hgb Hct MCV MCH MCHC RDW Plt Count Lymph % (Auto) Piatt % (Auto) Eos % (Auto) Baso % (Auto) Lymph # (Auto) Piatt # (Auto) Eos # (Auto) Baso # (Auto) Add Manual Diff Total Counted Seg Neutrophils % Seg Neuts % (Manual) Lymphocytes % (Manual) Monocytes % (Manual) Eosinophils % (Manual) Basophils % (Manual) Nucleated RBC % Seg Neutrophils # Seg Neutrophils # Man Band Neutrophils # Lymphocytes # (Manual) Abs React Lymphs (Man) Monocytes # (Manual) Eosinophils # (Manual) Basophils # (Manual) Metamyelocytes # Myelocytes # Promyelocytes # Blast Cells # WBC Morphology Hypersegmented Neuts Hyposegmented Neuts Hypogranular Neuts Smudge Cells Toxic Granulation Toxic Vacuolation Dohle Bodies Pelger-Huet Anomaly Jesus Rods Platelet Estimate Clumped Platelets Plt Clumps, EDTA Large Platelets Giant Platelets Platelet Satelliting Plt Morphology Comment RBC Morphology Dimorphic RBCs Polychromasia Hypochromasia Poikilocytosis Anisocytosis Microcytosis Macrocytosis Spherocytes Pappenheimer Bodies Sickle Cells Target Cells Tear Drop Cells Ovalocytes Helmet Cells Sanchez-Hallock Bodies [place] Rings Sarah Cells Bite Cells Crenated Cell Elliptocytes Acanthocytes (Spur) Rouleaux Hemoglobin C Crystals Schistocytes Malaria parasites Murphy Bodies Hem Pathologist Commnt Sodium Potassium Chloride Carbon Dioxide Anion Gap BUN Creatinine Estimated GFR BUN/Creatinine Ratio Glucose Calcium Troponin T < 0.010 < 0.010 HCG, Qual - EKG Data -: EKG Interpreted by Me EKG shows normal: sinus rhythm Rate: normal - EKG Data When compared to previous EKG there are: previous EKG unavailable Interpretation: other (No ischemic changes seen) - Radiology Data Radiology results: report reviewed (Chest x-ray), image reviewed (Chest x-ray) interpreted by me: Chest x-ray-no focal infiltrates, no pneumothorax. No foreign body seen Findings [address] [address] XRay Report Signed Patient: GEMA CLARK MR#: [id number] : 1980 Acct:[id number] Age/Sex: 39 / F ADM Date: 05/10/20 Loc: ED Attending Dr: Ordering Physician: RHONDA MOORE MD Date of Service: 05/10/20 Procedure(s): XR chest routine 2V Accession Number(s): [id number] cc: ED MD OSCAR Fluoro Time In Minutes: CHEST 2 VIEWS INDICATION / CLINICAL INFORMATION: Chest Pain. COMPARISON: 12/15/2018. FINDINGS: SUPPORT DEVICES: None. HEART / MEDIASTINUM: No significant abnormality. LUNGS / PLEURA: No significant pulmonary or pleural abnormality. No pneumothorax. ADDITIONAL FINDINGS: No significant additional findings. IMPRESSION: No acute cardiopulmonary abnormality. Signer Name: Italia Cutler MD Signed: 05/10/2020 10:10 PM Workstation Name: [id number] Transcribed By: SS Dictated By: ITALIA CUTLER Electronically Authenticated By: ITALIA CUTLER Signed Date/Time: 05/10/202209 DD/ 08 TD/TT: - Differential Diagnosis ACS, pericarditis, GERD Critical care attestation.: If time is entered above; I have spent that time in minutes in the direct care of this critically ill patient, excluding procedure time. ED Disposition Clinical Impression: Chest pain, Beta thalassemia, Symptomatic anemia Disposition: OP ADMIT IP TO THIS HOSP Is pt being admited?: Yes Does the pt Need Aspirin: No Condition: Fair Instructions: Chest Pain (ED) Referrals: NIA ORDONEZ MD [Primary Care Provider] - 3-5 Days Time of Disposition: 08:22 (Hospitalist notified (Dr. Hernandez)) HEART Score - HEART Score History: Moderately suspicious EKG: Normal Age: < 45 Risk factors: 1-2 risk factors Troponin: Troponin T < 0.010 ng/mL (0.00-0.029) 05/11/20 04:41 Troponin: < normal limit HEART Score: 2
[2020-05-11] MEDS ORDERED: SODIUM CHLORIDE 0.9% 500 ML 500 ML IV ONE (08:21)
--- NOTE | 2020-05-11 10:25 | History and Physical Report ---
History of Present Illness Date of examination: 05/11/20 Date of admission: 05/11/20 08:23 Chief complaint: cp History of present illness: 39-year-old female with significant past medical history of thalassemia/chronic anemia, uterine fibroids and menorrhagia who presents through the emergency department with complaints of chest pain. Patient states that her chest pain began yesterday at approximately 7 PM described as sharp substernal pain that is exacerbated with movement of her upper torso. Patient does not associate any other symptoms such as nausea vomiting or diaphoresis. Patient denies any diarrhea. Patient states that her pain is approximately 1 minute in duration. Patient reports receiving blood transfusion approximately 1 year ago. Patient also reports recent heavy menstrual bleeding with her menstrual cycle. Patient denies any hematemesis, melena or hematochezia. No cough cold-like symptoms. No headache or visual disturbances. Past History Past Medical History: other (Menorrhagia, thalassemia/anemia, uterine fibroid) Past Surgical History: No surgical history Social history: no significant social history Family history: no significant family history Medications and Allergies Allergies Allergy/AdvReac Type Severity Reaction Status Date / Time No Known Allergies Allergy Verified 12/15/18 19:51 Home Medications Medication Instructions Recorded Confirmed Last Taken Type Famotidine [Pepcid] 20 mg PO BID #30 tablet 12/17/18 Unknown Rx Ferrous Sulfate [Feosol 325 MG tab] 325 mg PO QDAY #15 tablet 12/17/18 Unknown Rx Nitroglycerin [Nitrostat] 0.4 mg SL .Q5MIN PRN #30 tablet 12/17/18 Unknown Rx ARIPiprazole 05/11/20 Unknown History ARIPiprazole [Abilify] 10 mg PO DAILY 05/11/20 05/11/20 Unknown History Sertraline [Zoloft] 50 mg PO QDAY 05/11/20 Unknown History Review of Systems All systems: negative Exam - Constitutional Vitals: Temp Pulse Resp BP Pulse Ox 98.1 F 74 14 102/54 100 05/10/20 20:49 05/11/20 09:30 05/11/20 09:30 05/11/20 09:30 05/11/20 09:30 General appearance: Present: no acute distress, well-nourished - EENT Eyes: Present: PERRL ENT: hearing intact, clear oral mucosa - Neck Neck: Present: supple, normal ROM - Respiratory Respiratory effort: normal Respiratory: bilateral: CTA - Cardiovascular Heart Sounds: Present: S1 & S2. Absent: rub, click - Extremities Extremities: pulses symmetrical, No edema Peripheral Pulses: within normal limits - Abdominal General gastrointestinal: Present: soft, non-tender, non-distended, normal bowel sounds Female genitourinary: Present: normal - Integumentary Integumentary: Present: clear, warm, dry - Musculoskeletal Musculoskeletal: gait normal, strength equal bilaterally - Psychiatric Psychiatric: appropriate mood/affect, intact judgment & insight - Neurologic Neurologic: CNII-XII intact, moves all extremities HEART Score - HEART Score EKG: Normal Age: < 45 Risk factors: 1-2 risk factors Troponin: Troponin T < 0.010 ng/mL (0.00-0.029) 05/11/20 04:41 Troponin: < normal limit Results - Labs CBC & Chem 7: 05/10/20 22:42 05/10/20 20:48 Labs: Laboratory Last Values WBC 7.7 K/mm3 (4.5-11.0) 05/10/20 22:42 RBC 4.45 M/mm3 (3.65-5.03) 05/10/20 22:42 Hgb 5.6 gm/dl (10.1-14.3) L* 05/10/20 22:42 Hct 22.6 % (30.3-42.9) L 05/10/20 22:42 MCV 51 fl (79-97) L 05/10/20 22:42 MCH 13 pg (28-32) L 05/10/20 22:42 MCHC 25 % (30-34) L 05/10/20 22:42 RDW 36.5 % (13.2-15.2) H 05/10/20 22:42 Plt Count 359 K/mm3 (140-440) 05/10/20 22:42 Lymph % (Auto) Stock Trader 05/10/20 22:42 Cotton % (Auto) Stock Trader 05/10/20 22:42 Eos % (Auto) Stock Trader 05/10/20 22:42 Baso % (Auto) Stock Trader 05/10/20 22:42 Lymph # (Auto) Stock Trader 05/10/20 22:42 Cotton # (Auto) Stock Trader 05/10/20 22:42 Eos # (Auto) Stock Trader 05/10/20 22:42 Baso # (Auto) Stock Trader 05/10/20 22:42 Add Manual Diff Complete 05/10/20 22:42 Total Counted 100 05/10/20 22:42 Seg Neutrophils % Stock Trader 05/10/20 22:42 Seg Neuts % (Manual) 46.0 % (40.0-70.0) 05/10/20 22:42 Lymphocytes % (Manual) 46.0 % (13.4-35.0) H 05/10/20 22:42 Monocytes % (Manual) 4.0 % (0.0-7.3) 05/10/20 22:42 Eosinophils % (Manual) 2.0 % (0.0-4.3) 05/10/20 22:42 Basophils % (Manual) 2.0 % (0.0-1.8) H 05/10/20 22:42 Nucleated RBC % Not Reportable 05/10/20 22:42 Seg Neutrophils # Stock Trader 05/10/20 22:42 Seg Neutrophils # Man 3.5 K/mm3 (1.8-7.7) 05/10/20 22:42 Band Neutrophils # 0.0 K/mm3 05/10/20 22:42 Lymphocytes # (Manual) 3.5 K/mm3 (1.2-5.4) 05/10/20 22:42 Abs React Lymphs (Man) 0.0 K/mm3 05/10/20 22:42 Monocytes # (Manual) 0.3 K/mm3 (0.0-0.8) 05/10/20 22:42 Eosinophils # (Manual) 0.2 K/mm3 (0.0-0.4) 05/10/20 22:42 Basophils # (Manual) 0.2 K/mm3 (0.0-0.1) H 05/10/20 22:42 Metamyelocytes # 0.0 K/mm3 05/10/20 22:42 Myelocytes # 0.0 K/mm3 05/10/20 22:42 Promyelocytes # 0.0 K/mm3 05/10/20 22:42 Blast Cells # 0.0 K/mm3 05/10/20 22:42 WBC Morphology Not Reportable 05/10/20 22:42 Hypersegmented Neuts Not Reportable 05/10/20 22:42 Hyposegmented Neuts Not Reportable 05/10/20 22:42 Hypogranular Neuts Not Reportable 05/10/20 22:42 Smudge Cells Not Reportable 05/10/20 22:42 Toxic Granulation Not Reportable 05/10/20 22:42 Toxic Vacuolation Not Reportable 05/10/20 22:42 Dohle Bodies Not Reportable 05/10/20 22:42 Pelger-Huet Anomaly Not Reportable 05/10/20 22:42 Jesus Rods Not Reportable 05/10/20 22:42 Platelet Estimate Consistent w auto 05/10/20 22:42 Clumped Platelets Not Reportable 05/10/20 22:42 Plt Clumps, EDTA Not Reportable 05/10/20 22:42 Large Platelets Not Reportable 05/10/20 22:42 Giant Platelets Not Reportable 05/10/20 22:42 Platelet Satelliting Not Reportable 05/10/20 22:42 Plt Morphology Comment Not Reportable 05/10/20 22:42 RBC Morphology Not Reportable 05/10/20 22:42 Dimorphic RBCs Not Reportable 05/10/20 22:42 Polychromasia Few 05/10/20 22:42 Hypochromasia 3+ 05/10/20 22:42 Poikilocytosis Not Reportable 05/10/20 22:42 Anisocytosis 3+ 05/10/20 22:42 Microcytosis 3+ 05/10/20 22:42 Macrocytosis Not Reportable 05/10/20 22:42 Spherocytes Not Reportable 05/10/20 22:42 Pappenheimer Bodies Not Reportable 05/10/20 22:42 Sickle Cells Not Reportable 05/10/20 22:42 Target Cells Not Reportable 05/10/20 22:42 Tear Drop Cells Few 05/10/20 22:42 Ovalocytes Few 05/10/20 22:42 Helmet Cells Not Reportable 05/10/20 22:42 Sanchez-Scooba Bodies Not Reportable 05/10/20 22:42 [place] Rings Not Reportable 05/10/20 22:42 [place] Cells Few 05/10/20 22:42 Bite Cells Not Reportable 05/10/20 22:42 Crenated Cell Not Reportable 05/10/20 22:42 Elliptocytes Not Reportable 05/10/20 22:42 Acanthocytes (Spur) Not Reportable 05/10/20 22:42 Rouleaux Not Reportable 05/10/20 22:42 Hemoglobin C Crystals Not Reportable 05/10/20 22:42 Schistocytes 1+ 05/10/20 22:42 Malaria parasites Not Reportable 05/10/20 22:42 Murphy Bodies Not Reportable 05/10/20 22:42 Hem Pathologist Commnt No 05/10/20 22:42 Sodium 137 mmol/L (137-145) 05/10/20 20:48 Potassium 3.8 mmol/L (3.6-5.0) 05/10/20 20:48 Chloride 103.5 mmol/L (98-107) 05/10/20 20:48 Carbon Dioxide 24 mmol/L (22-30) 05/10/20 20:48 Anion Gap 13 mmol/L 05/10/20 20:48 BUN 9 mg/dL (7-17) 05/10/20 20:48 Creatinine 0.6 mg/dL (0.6-1.2) 05/10/20 20:48 Estimated GFR > 60 ml/min 05/10/20 20:48 BUN/Creatinine Ratio 15 % 05/10/20 20:48 Glucose 94 mg/dL (65-100) 05/10/20 20:48 Calcium 9.3 mg/dL (8.4-10.2) 05/10/20 20:48 Troponin T < 0.010 ng/mL (0.00-0.029) 05/11/20 04:41 HCG, Qual Negative (Negative) 05/10/20 20:48 Davila/IV: IV Catheter Type [Left Hand] INT / Saline Lock Assessment and Plan Assessment and plan: Symptomatic anemia. Patient will receive PRBCs and follow-up H&H posttransfusion. Acute CP. Etiology secondary to above. Trop negative. Chronic blood loss anemia and anemia of chronic disease. Pt with history of thalassemia. Pt. with menorrhagia/uterine fibroids. Menorrhagia/uterine fibroids. Outpatient [facility] f/u.
[2020-05-11] MEDS ORDERED: ONDANSETRON 4 MG/2 ML INJ IV PRN (10:26)
[2020-05-11] MEDS ORDERED: ACETAMINOPHEN 325 MG TAB PO PRN (10:26)
[2020-05-11] MEDS ORDERED: SODIUM CHLORIDE 0.9% 500 ML 500 ML IV SCH (15:00)
[2020-05-11 20:05] LABS: Mean Corpuscular HGB Conc 26 % (30-34); Red Blood Count 4.38 M/mm3 (3.65-5.03)
[2020-05-11 20:22] LABS: Hematocrit 24.1 % (30.3-42.9); Hemoglobin 6.4 gm/dl (10.1-14.3); Mean Corpuscular Volume 55 fl (79-97); Platelet Count 405 K/mm3 (140-440)
[2020-05-11 20:25] LABS: Red Cell Distribution Width > 40.0 % (13.2-15.2)
[2020-05-11 23:21] LABS: Anisocytosis 3+; Hypochromasia 3+; Total Cells Counted 100
[2020-05-11 23:22] LABS: Ovalocytes Few; Schistocytes 1+; Tear Drop Cells Few
[2020-05-11 23:23] LABS: Burr Cells Rare; Platelet Estimate Consistent w Auto
[2020-05-12] MEDS ORDERED: SODIUM CHLORIDE 0.9% 500 ML 500 ML IV ONE ×2 (05:52→09:00)
--- NOTE | 2020-05-12 10:40 | Discharge Summary ---
Providers - Providers Date of Admission: 05/11/20 08:23 Date of discharge: 05/12/20 Attending physician: ARACELI KAMINSKI Primary care physician: NIA ORDONEZ Hospitalization Reason for admission: Symptomatic anemia Condition: Fair Hospital course: 39-year-old female with significant past medical history of thalassemia/chronic anemia, uterine fibroids and menorrhagia who presents through the emergency department with complaints of chest pain. Patient states that her chest pain began yesterday at approximately 7 PM described as sharp substernal pain that is exacerbated with movement of her upper torso. Patient did not associate any other symptoms such as nausea vomiting or diaphoresis. Patient was found to have a hemoglobin of 5.6 on admission. Patient was admitted with diagnosis of chronic blood loss anemia/anemia of chronic disease and symptomatic anemia related to menorrhagia/uterine fibroids. Patient received 2 units PRBCs with stabilization of hemoglobin. Patient is to follow-up with [facility] as an outpatient for fibroids and menorrhagia. Patient had no further episodes of chest pain. EKG unremarkable and troponin negative. Therefore, patient will be discharged home and is to follow-up with [facility]. Dedicated discharge time 35 minutes. Disposition: DC-01 TO HOME OR SELFCARE Time spent for discharge: 35 - Discharge Diagnoses (1) Menorrhagia Status: Acute (2) Beta thalassemia Status: Acute (3) Chest pain Status: Acute (4) Symptomatic anemia Status: Acute (5) Chest pain Status: Acute (6) GERD (gastroesophageal reflux disease) Status: Acute (7) Uterine fibroid Status: Acute Core Measure Documentation - Palliative Care Palliative Care/ Comfort Measures: Not Applicable - Core Measures Any of the following diagnoses?: none Exam - Constitutional Vitals: Temp Pulse Resp BP Pulse Ox 98.5 F 69 16 94/42 96 05/12/20 10:05 05/12/20 10:05 05/12/20 10:05 05/12/20 10:05 05/12/20 10:05 General appearance: Present: no acute distress, well-nourished - EENT Eyes: Present: PERRL ENT: hearing intact, clear oral mucosa - Neck Neck: Present: supple, normal ROM - Respiratory Respiratory effort: normal Respiratory: bilateral: CTA - Cardiovascular Heart Sounds: Present: S1 & S2. Absent: rub, click - Extremities Extremities: pulses symmetrical, No edema Peripheral Pulses: within normal limits - Abdominal General gastrointestinal: Present: soft, non-tender, non-distended, normal bowel sounds Female genitourinary: Present: normal - Integumentary Integumentary: Present: clear, warm, dry - Musculoskeletal Musculoskeletal: gait normal, strength equal bilaterally - Psychiatric Psychiatric: appropriate mood/affect, intact judgment & insight - Neurologic Neurologic: CNII-XII intact, moves all extremities Plan Activity: advance as tolerated Weight Bearing Status: Weight Bear as Tolerated Diet: regular Follow up with: NIA ORDONEZ MD [Primary Care Provider] - 3-5 Days Prescriptions: ARIPiprazole [Abilify TAB] 10 mg PO DAILY #30 Ferrous Sulfate [Feosol 325 MG tab] 325 mg PO QDAY #15 tablet Famotidine [Pepcid] 20 mg PO BID #30 tablet Sertraline [Zoloft] 50 mg PO QDAY #30
[2020-05-12 11:09] VITALS: BP 113/53
[2020-05-12 15:48] LABS: Hematocrit 31.6 % (30.3-42.9); Hemoglobin 8.6 gm/dl (10.1-14.3)
[2020-05-12 16:06] LABS: Blood Urea Nitrogen 8 mg/dL (7-17); Calcium 9.1 mg/dL (8.4-10.2); Hemolysis Index 12
[2020-05-12 16:09] LABS: BUN/Creatinine Ratio 20
[2020-05-12 16:20] LABS: Hematocrit 31.4 % (30.3-42.9); Hemoglobin 8.7 gm/dl (10.1-14.3); Red Blood Count 5.25 M/mm3 (3.65-5.03)
[2020-05-12 16:21] LABS: Mean Corpuscular HGB Conc 28 % (30-34); Mean Corpuscular Volume 60 fl (79-97)
[2020-05-12 16:22] LABS: Platelet Count 423 K/mm3 (140-440); Red Cell Distribution Width > 40.0 % (13.2-15.2)
[2020-05-12 17:56] LABS: Band Neutrophils # (Manual) 0.1 K/mm3; Total Cells Counted 100
[2020-05-12 17:57] LABS: Anisocytosis 3+; Hypochromasia 3+; Large Platelets Few; Ovalocytes Few; Platelet Estimate Consistent w Auto; Poikilocytosis 1+; Tear Drop Cells Few
[2020-05-12 17:58] LABS: Schistocytes Rare
== END 2020-05-12 16:59 | disposition home or self-care (01) ==
LOC: ED 20:13 → 4A 05-11 08:23
PROVIDERS: ADMIT Hospitalist; ATTEND Hospitalist
DX: D56.1 Beta thalassemia (principal); D64.9 Anemia, unspecified; R07.89 Other chest pain; D50.0 Iron deficiency anemia secondary to blood loss (chronic); N92.0 Excessive and frequent menstruation with regular cycle; D25.9 Leiomyoma of uterus, unspecified; F32.9 Major depressive disorder, single episode, unspecified; K21.9 Gastro-esophageal reflux disease without esophagitis; F17.200 Nicotine dependence, unspecified, uncomplicated; Z79.899 Other long term (current) drug therapy
CPT/HCPCS: 36415; 36430; 71046; 80048; 84484; 84703; 85007; 85014; 85018; 85025; 86850; 86900; 86901; 86920; 87641; 93005; 96360; 96361; 99285; G0378; J7040; P9016

== ENCOUNTER 2021-10-21 14:46 | Emergency (ER) | payer OTHER ==
[2021-10-21 14:59] VITALS: BP 113/51
== END 2021-10-22 09:37 | disposition left against medical advice (07) ==
LOC: ED 14:46
DX: M25.476 Effusion, unspecified foot (principal); Z53.21 Procedure and treatment not carried out due to patient leaving prior to being seen by health care provider